=== PATIENT | female | born 1995 | race Two or more races ===

== ENCOUNTER 2017-11-03 16:29 | Emergency (ER) | payer OTHER ==
[~2017-11-03] VITALS: Ht 165.1 cm; Wt 65.8 kg
[2017-11-03 16:30] VITALS: BP 133/73
[2017-11-03] MEDS ORDERED: IBUPROFEN 600 MG TABLET PO ONE ×2 (17:28→17:30)
== END 2017-11-03 19:10 | disposition home or self-care (01) ==
LOC: ER 16:32
DX: S80.02XA Contusion of left knee, initial encounter (principal); S80.01XA Contusion of right knee, initial encounter; V43.62XA Car passenger injured in collision with other type car in traffic accident, initial encounter; Y93.89 Activity, other specified; Y92.89 Other specified places as the place of occurrence of the external cause; Y99.8 Other external cause status
CPT/HCPCS: 73562 ×2; 99284; A4606; Z7610